=== PATIENT | male | born 1975 | race Caucasian/White ===

== ENCOUNTER 2024-04-09 16:58 | Emergency (ER) | payer OTHER ==
[2024-04-09 17:14] VITALS: BP 154/99; PULSE 94; RESP 18; TEMP 97.9; O2SAT 96
--- NOTE | 2024-04-09 17:45 | ERPHSYRPT ---
- History of Present Illness Time Seen by Provider: 04/09/24 17:30 Source: patient Exam Limitations: no limitations Patient Subjective Stated Complaint: Shoulder pain (Left) Triage Nursing Assessment: Patient ambulated back to ED and transferred self to bed. Patient A+O X3. Patient's skin pink, warm and dry. Patient complains of left shoulder pain 7/10 for one month that is getting worse. Patient states one month ago he was getting out of a semi truck and heard a "pop" and has had pain ever since. Physician History: The patient, a semi-vacuum truck driver, presents with a one-month history of right shoulder pain and limited mobility. The symptoms began abruptly when they were exiting their semi-truck and felt a pop in their shoulder, followed by immediate arm drop. Since then, they have experienced persistent discomfort, particularly in the upper shoulder region, occasionally radiating down to the elbow. The pain has significantly restricted their arm movement, particularly in lifting the arm independently. They report being able to lift the arm with assistance from the other hand. The pain and limited mobility have been causing discomfort during driving and sleep, and have affected their ability to climb onto the trailer of their truck. The patient has tried managing the pain with Tramadol and Lortab, prescribed during a previous visit to another facility. However, they report an adverse reaction to Lortab and have since discontinued its use. They have not taken any other medications or muscle relaxers for this issue. The patient has a history of work-related injuries and this current issue is being processed under workman's compensation. Occurred: other (1 month ago) Method of Injury: twisted (popped when getting up into truck) Quality: constant, throbbing Severity of Pain-Max: severe Severity of Pain-Current: severe Extremities Pain Location: shoulder: left Modifying Factors: Improves With: nothing. Worsens With: movement Associated Symptoms: No back pain, No chest discomfort, No chest pain, No dyspnea, No fever, No neck pain, No sweating, No short of breath, No vomiting Allergies/Adverse Reactions: No Known Drug Allergies Allergy (Unverified 04/09/24 17:02) Home Medications: Potassium Chlorate 20 meq PO TID 04/09/24 [History] Hx Influenza Vaccination/Date Given: No Hx Pneumococcal Vaccination/Date Given: No Immunizations Up to Date: Yes Travel Risk - International Travel Have you traveled outside of the country in past 3 weeks: No - Emerging Infectious Disease Are you exhibiting symptoms associated with any current EIDs: No - Review of Systems All Other Systems: Reviewed and Negative - Past Medical History Pertinent Past Medical History: No Neurological History: No Pertinent History ENT History: No Pertinent History Cardiac History: No Pertinent History Respiratory History: No Pertinent History Endocrine Medical History: No Pertinent History Musculoskeletal History: No Pertinent History GI Medical History: No Pertinent History History: No Pertinent History Psycho-Social History: No Pertinent History Male Reproductive Disorders: No Pertinent History Other Medical History: Hypokalemia - Past Surgical History Past Surgical History: Yes Neuro Surgical History: No Pertinent History Respiratory: No Pertinent History Gastrointestinal: Appendectomy, Cholecystectomy Genitourinary: No Pertinent History Musculoskeletal: Orthopedic Surgery Other Surgical History: Right hand surgery - Social History Smoking Status: Never smoker Exposure to second hand smoke: No Drug Use: none - Social Determinants of Health Will the patient participate in the screening: Yes Do you worry about a steady place to live?: No Do you have any problems with any of the following?: No known problems In the past 12 months,have you had to go without utilities?: No Transportation Issues: No Has anyone in your support network made you feel unsafe?: No Have you or anyone in your house had to go without enough: No - Nursing Vital Signs Nursing Vital Signs: Initial Vital Signs Temperature 97.9 F 04/09/24 17:03 Pulse Rate 94 H 04/09/24 17:03 Respiratory Rate 18 04/09/24 17:03 Blood Pressure 154/99 04/09/24 17:03 O2 Sat by Pulse Oximetry 96 04/09/24 17:03 Pain Scale Pain Intensity 7 - Physical Exam General Appearance: no apparent distress Shoulder Exam: limited ROM, pain, soft tissue tenderness, No deformity, No ecchymosis Elbow/Forearm Exam: normal inspection, non-tender, no evidence of injury, normal ROM Neuro/Tendon Exam: normal sensation Mental Status Exam: alert, oriented x 3, cooperative Skin Exam: normal color, warm, dry, No rash SpO2 Interpretation: normal SpO2: 96 O2 Delivery: Room Air - Course Nursing assessment & vital signs reviewed: Yes - Radiology Exams Left Shoulder X-ray Interpretation: Interpreted by me, No Fracture Ordered Tests: Active Orders 24 hr Category Date Time Status SHOULDER Stat Exams 04/09/24 17:10 Ordered - Progress Progress: unchanged Progress Note: Shoulder Pain Likely rotator cuff tear based on history of a pop and subsequent loss of function, pain, and limited range of motion. Discussed the possibility of a partial or full thickness tear and the potential need for surgery. Also discussed the option of a steroid injection for immediate relief, but decided against it due to potential delay in surgery if needed. -Referral to orthopedics for further evaluation and management. -Administer Toradol injection for immediate pain relief. Counseled pt/family regarding: diagnosis, need for follow-up, rad results Medical Desision Making - Diagnostic Testing Diagnostic test were ordered, analyzed, and reviewed by me: Yes Radiological Interpretation: Interpreted by me - Risk of complications The pt has a mod risk of morbidity or mortality based on: Need for prescription drug management - Departure Departure Disposition: Home Clinical Impression: Left shoulder pain, Limitation of joint motion of left shoulder, Rotator cuff dysfunction Condition: Good Critical Care Time: No Instructions: Rotator Cuff Injury (DC), Rotator Cuff Tear Exercises Prescriptions: Ketorolac Trometh 10 mg Tab [TORAdol 10 MG TABLET] 10 mg PO TID PRN 7 Days #21 tablet PRN Reason: Pain Outpatient Orders: Ortho Referral Time Frame: 1 Day, Facility: [facility], Location: [facility]THO [facility]
[2024-04-09] MEDS ORDERED: TORAdol 30 mg Injection ONE (17:51)
[2024-04-09] MEDS: TORAdol 30 mg Injection IM ONE (17:52)
--- NOTE | 2024-04-09 19:19 | XRAY ---
Indication: Pain. Comparison: None 3 view left shoulder demonstrates mild AC degenerative arthropathy with tiny inferior spurring and a few incidental left lung calcified granulomas. No other bony, articular, or soft tissue abnormalities.
== END 2024-04-09 18:03 | disposition home or self-care (01) ==
LOC: ED 16:58
DX: M25.512 Pain in left shoulder (principal); M75.102 Unspecified rotator cuff tear or rupture of left shoulder, not specified as traumatic; Z79.899 Other long term (current) drug therapy
CPT/HCPCS: 73030; 96372; 99283; J1885

== ENCOUNTER 2025-04-19 09:37 | Day surgery (SDC) | payer BC ==
[2025-04-19] MEDS ORDERED: Lactated Ringers 1,000 ML IV ONE (09:55)
[2025-04-19 10:10] VITALS: RESP 16
[2025-04-19 10:31] LABS: Calcium 9.1 mg/dL (8.4-10.2); Carbon Dioxide 27.0 mmol/L (22-30); Creatinine 1 1.12 mg/dL (0.66-1.25); EST GLOMERULAR FILTRATION RATE 81.0 ML/MIN; Glucose 127.0 mg/dL (74-106); Potassium 4.0 mmol/L (3.5-5.1)
[2025-04-19] MEDS ORDERED: propofoL IV ONE ×2 (13:03→13:17)
[2025-04-19] MEDS ORDERED: Versed 2 MG/2 ML Injection ONE (13:03)
[2025-04-19 13:49] VITALS: TEMP 97.2
[2025-04-19 14:00] VITALS: BP 149/82; PULSE 68; O2SAT 95
--- NOTE | 2025-04-23 07:43 | OP ---
DATE/TIME OF SURGERY: 04/19/2025 [id number] PREOPERATIVE DIAGNOSIS: 1) Due for colorectal cancer screening, average risk. 2) Possible resolved diverticulitis. POSTOPERATIVE DIAGNOSIS: Diverticulosis. PROCEDURE PERFORMED: Colonoscopy. ANESTHESIA: IV. CONDITION: Stable. COMPLICATIONS: None. SPECIMEN: None. INDICATIONS: Patient is a 50-year-old male who presents consistent with a resolved episode of diverticulitis and now he is back to normal, not really having any symptoms, average risk colonoscopy, colorectal cancer, no family history, no prior. Discussed with patient recommendation for colonoscopy; he is due anyway for screening. He would like to proceed with that. FINDINGS: Mild diverticulosis. Normal exam otherwise. Fair preparation. DESCRIPTION OF PROCEDURE AND FINDINGS: The patient was brought to the endoscopy suite, routinely positioned and prepared. IV anesthesia induced. External examination okay. Digital rectal exam normal. Colonoscope inserted and advanced to the cecum, confirmed by the ileocecal valve. The preparation was Aronchick, fair preparation, about 90% mucosal visualization, just some liquid stool was able to be suctioned out well. Withdrawal time greater than 6 minutes. He does have deep haustra, mild diverticulosis of sigmoid colon, no active inflammation, retroflexion satisfactory. The patient tolerated the procedure well and was taken to Recovery in stable condition. RECOMMENDATIONS: Would repeat screening colonoscopy in 5 to 7 years with the fair preparation.
== END 2025-04-19 14:11 | disposition home or self-care (01) ==
LOC: SDC 09:37
PROVIDERS: ATTEND Surgery
DX: Z12.11 Encounter for screening for malignant neoplasm of colon (principal); K57.92 Diverticulitis of intestine, part unspecified, without perforation or abscess without bleeding; K57.30 Diverticulosis of large intestine without perforation or abscess without bleeding; Z79.899 Other long term (current) drug therapy